=== PATIENT | male | born 2000 | race Caucasian/White ===

== ENCOUNTER 2022-01-11 15:34 | Emergency (ER) | payer OTHER, SELFPAY ==
[2022-01-11 15:42] VITALS: BP 150/74; PULSE 93; RESP 18; TEMP 37; O2SAT 99
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
[2022-01-11 16:41] LABS: Abs Immature Grans 0.26 10^3/uL (0.0-0.06); Absolute Basophil Count 0.05 10^3/uL (0.0-0.2); Absolute Eosinophil Count 0.09 10^3/uL (0.0-0.7); Absolute Lymphocyte Count 1.87 10^3/uL (1.2-3.4); Absolute Neutrophil Count 10.21 10^3/uL (1.2-6.7); Basophils % 0.4; Eosinophils % 0.7; HCT 41.6 % (40.0-50.0); Immature Grans % 1.9; MCH 27.6 pg (27.0-33.0); MCHC 33.7 % (32.0-36.0); MCV 82 fL (80-95); MPV 10.6 fL (8.0-11.0); Monocytes % 6.7; Neutrophils % 76.3; Platelet Count 304 10^3/uL (130-400); RBC 5.07 10^6/uL (4.36-5.78); RDW 12.6 % (11.8-14.1); RDW-SD 37.9 fL; WBC 13.38 10^3/uL (4.4-10.8)
[2022-01-11] MEDS: Normal Saline 1,000 ML 1000 ML IV (16:51)
[2022-01-11 16:53] LABS: INR 1.1 (0.9-1.1); PTT Activated 21.7 sec (21.0-27.5); Prothrombin Time 10.8 sec (9.3-11.0)
[2022-01-11 16:55] LABS: ALT 40 U/L (16-63); AST 20 U/L (15-37); Alkaline Phosphatase 55 U/L (46-116); Anion Gap 7.4 mmol/L (3-11); BUN 21 mg/dL (7-18); Bilirubin, Total 0.6 mg/dL (0.2-1.0); CO2 25.6 mmol/L (21.0-32.0); Chloride 106 mmol/L (98-107); Glucose 97 mg/dL (74-106); Lipase 51 U/L (73-393); Potassium 3.9 mmol/L (3.5-5.1); Sodium 139 mmol/L (136-145); Total Protein 7.1 g/dL (6.4-8.2)
[2022-01-11] MEDS: MORPHine 4 MG/ML SYR IVP (17:02)
[2022-01-11] MEDS: Ketorolac 30 MG/ML VIAL IVP (17:05)
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
[2022-01-11 17:57] LABS: Bilirubin Negative (Negative); Blood Trace-intact (Negative); Clarity Clear (Clear); Glucose Negative (Negative); Ketones Negative (Negative); Leukocyte Esterase Negative (Negative); Nitrite Negative (Negative); Specific Gravity 1.015 (1.005-1.025); Urobilinogen 0.2 EU/dL (Up TO 0.2)
[2022-01-11 18:00] LABS: Bacteria Negative HPF (Negative); C & S Indicated? No; Casts Negative LPF (Negative); Crystals Negative HPF (Negative); Epithelial Cells Rare HPF (Negative); Mucus Negative (Negative); RBC 0-2 HPF (0-2); WBC 0-2 HPF (0-5)
--- NOTE | 2022-01-17 14:34 | PDOC.ERCMPRO ---
- If Service Date Differs Date of service: 01/17/22 Time of Service: 14:35 Care Management Progress Note SBIRT phone follow up attempted as agreed with Pt. () No answer. Message left with return call requested to Markell Estrada ext.
== END 2022-01-11 18:13 | disposition home or self-care (01) ==
PROVIDERS: Emergency Provider Physician Assistant
DX: S22.069A Unspecified fracture of T7-T8 vertebra, initial encounter for closed fracture (principal); D72.829 Elevated white blood cell count, unspecified; R00.0 Tachycardia, unspecified; M54.2 Cervicalgia; R10.10 Upper abdominal pain, unspecified; V18.0XXA Pedal cycle driver injured in noncollision transport accident in nontraffic accident, initial encounter; Y93.55 Activity, bike riding; Y92.828 Other wilderness area as the place of occurrence of the external cause
CPT/HCPCS: 36415; 74177; 80053; 83690; 96361; 96374; 96375; 99285; 70450; 71260; 72125; 81003; 81015; 85025; 85610; 85730; 99284; J1885; J2270